=== PATIENT | female | born 1955 | race Caucasian/White ===

== ENCOUNTER 2016-07-18 00:41 | Emergency (ER) | payer MEDICAID ==
[2016-07-18 01:26] VITALS: BP 129/87
--- NOTE | 2016-07-18 01:35 | EDM.PDOC ---
[id number] CYST REMOVAL ON BACK, BLEEDING WITH PAIN Time Seen by Provider: 07/18/16 01:00 Source: Reports: Patient History Limitations: Reports: No limitations - History of Present Illness INITIAL COMMENTS - FREE TEXT/NARRATIVE: reports cyst removed by surgeon in [place] today. Tonight dressing fell off and bleeding from incision. Mild discomfort, has not taken any medication for pain Severity: mild - Related Data Allergies Allergy/AdvReac Type Severity Reaction Status Date / Time No Known Allergies Allergy Verified 07/18/16 00:58 Home Meds: Ambulatory Orders Medication Instructions Recorded Confirmed Albuterol Sulfate [Proair Hfa] 2 puff INH ASDIRECTED PRN 12/23/15 12/27/15 Aspirin/Calcium Carbonate/Mag 650 mg PO DAILY 12/23/15 07/18/16 [Aspirin Buffered 325 mg Tab] Multivit-Min/Iron Fum/Folic AC 1 tab PO DAILY 12/23/15 07/18/16 [Bfxby-Btrhvpr-Xxipfcgj Tablet] Vortioxetine Hydrobromide 20 mg PO DAILY 07/18/16 07/18/16 [Brintellix] atorvaSTATin [Lipitor] 40 mg PO BEDTIME 07/18/16 07/18/16 atorvaSTATin [Lipitor] 40 mg PO DAILY 07/18/16 07/18/16 Past Medical History HEENT History: Reports: Other (see below) Other HEENT History: UPPER AND LOWER DENTURES Cardiovascular History: Reports: High cholesterol, Other (see below) Other Cardiovascular History: MITRAL VALVE DISEASE Respiratory History: Reports: COPD Gastrointestinal History: Reports: Hemorrhoids, Other (see below) Other Gastrointestinal History: rectal bleed noted Genitourinary History: Reports: None EVENT SALES REPRESENTATIVE History: Reports: None, Musculoskeletal History: Reports: Gout Neurological History: Reports: CVA, TIA Psychiatric History: Reports: Anxiety, Depression Endocrine/Metabolic History: Reports: Diabetes, type II, Obesity/BMI 30+ Hematologic History: Reports: None Immunologic History: Reports: None Oncologic (Cancer) History: Reports: None Dermatologic History: Reports: Other (see below) Other Dermatologic History: cyst removal on back - Infectious Disease History Infectious Disease History: Reports: Chicken pox, Measles, Shingles - Past Surgical History HEENT Surgical History: Reports: Oral surgery Cardiovascular Surgical History: Reports: Other (see below) Other Cardiovascular Surgeries/Procedures: angiogram GI Surgical History: Reports: None, Colonoscopy, Other (see below) Other GI Surgeries/Procedures: Removal of lrge polyp. Female Surgical History: Reports: None Musculoskeletal Surgical History: Reports: Carpal tunnel, Other (see below) Other Musculoskeletal Surgeries/Procedures:: BILAT CARPAL TUNNEL RELEASE Social & Family History - Family History Family Medical History: Noncontributory HEENT: Reports: Other (see below) Other HEENT Family History: son is deaf Cardiac: Reports: None Respiratory: Reports: PE GI: Reports: None : Reports: Renal disease/insufficiency OBGYN: Reports: None Musculoskeletal: Reports: Arthritis Neurological: Reports: Parkinson's Psychiatric: Reports: Bipolar Endocrine/Metabolic: Reports: None Hematologic: Reports: None Immunologic: Reports: None Dermatologic: Reports: None Oncologic: Reports: Breast, Other (see below) Other Oncologic Family History: liver - Tobacco Use Smoking Status *Q: Current Every Day Smoker Years of Tobacco use: 25 Packs/Tins Daily: 1 - Caffeine Use Caffeine Use: Reports: None - Recreational Drug Use Recreational Drug Use: No - Living Situation & Occupation Occupation: employed ED ROS GENERAL - Review of Systems Review Of Systems: See Below Constitutional: Reports: no symptoms Respiratory: Reports: No Symptoms Cardiovascular: Reports: No symptoms GI/Abdominal: Reports: No symptoms Musculoskeletal: Reports: no symptoms Skin: Reports: wound (surgical incision bleeding uanble to reach area to view or replace dressing) Neurological: Reports: No Symptoms ED EXAM, SKIN/RASH Exam: See Below Exam Limited By: No limitations General Appearance: alert, anxious, mild distress, obese Eye Exam: bilateral eye: EOMI Throat/Mouth: Normal inspection Head: atraumatic Respiratory/Chest: no respiratory distress Cardiovascular: normal peripheral pulses Back Exam: other (surgical incision to skin consistent with history of cyst removal.) Extremities: normal inspection Neurological: alert, oriented, normal cognition Skin: Warm, Normal color, Wound/incision Location, Skin: back (4cm horizontal surgical wound bra line, sutures intact. scant bleeding at wound, no swelling, no redness. bleeding controlled with mild pressure. ) Associated features: tenderness, weeping (small amount bright blood. ). No: warmth, swelling, inflammation Course - Vital Signs Last Recorded V/S: Last Vital Signs Temp 96.8 F 07/18/16 00:45 Pulse 81 07/18/16 00:45 Resp 15 07/18/16 01:25 BP 129/87 07/18/16 01:25 Pulse Ox 96 07/18/16 01:25 Departure - Departure Time of Disposition: 01:30 Disposition: Home, Self-Care 01 Condition: good Clinical Impression: Post-op bleeding Qualifiers: Surgical complication system/body Area: skin Procedure type: dermatologic Qualified Code(s): L76.21 - Postprocedural hemorrhage of skin and subcutaneous tissue following a dermatologic procedure Instructions: How to Change Your Dressing, [id number] Forms: ED Department Discharge Additional Instructions: dressing change in 24 hours monitor for any redness or pus type drainage. If noted, follow up with surgeon Sutures out by surgeon as directed in 10 days tylenol or ibuprofen for discomfort
== END 2016-07-18 01:44 | disposition home or self-care (01) ==
LOC: DL.ED 00:41
DX: L76.21 Postprocedural hemorrhage of skin and subcutaneous tissue following a dermatologic procedure (principal); E78.00 Pure hypercholesterolemia, unspecified; J44.9 Chronic obstructive pulmonary disease, unspecified; M10.9 Gout, unspecified; Z86.73 Personal history of transient ischemic attack (TIA), and cerebral infarction without residual deficits; F41.9 Anxiety disorder, unspecified; F32.9 Major depressive disorder, single episode, unspecified; E11.9 Type 2 diabetes mellitus without complications; E66.9 Obesity, unspecified; F17.210 Nicotine dependence, cigarettes, uncomplicated; Z98.890 Other specified postprocedural states
CPT/HCPCS: 99282

== ENCOUNTER 2016-08-23 06:25 | Day surgery (SDC) | payer MEDICAID ==
[2016-08-23 08:18] VITALS: BP 133/63
--- NOTE | 2016-08-23 08:58 | OR ---
DATE: 08/23/2016 PROCEDURE: Flexible sigmoidoscopy, NBI, and cold snare polypectomy. INSTRUMENT USED: CF-H180AL Olympus video colonoscope. PREMEDICATIONS: None. INDICATION: The patient with previous rectal sessile polyp excision. Followup sigmoidoscopic examination is done for detection of any residual polyp and removal, endoscopic hemostasis therapy if needed. DESCRIPTION OF PROCEDURE: Initial rectal exam was unremarkable. Rigid anoscopy showed small internal hemorrhoids without bleeding from them. The colonoscope was passed with ease up to distal sigmoid area. No bleeding was noted from any of the visualized areas at the commencement of the examination. No stricture. No vascular ectasia. No large isolated ulcerations seen. No evidence of diffuse inflammatory bowel disease in the form of friability, contact bleeding, or ulcerations. In the rectum, a small 5 mm sized residual polyp tissue was noted, NBI views were obtained, photographs were taken, cold snare polypectomy was done, the tissue was retrieved and sent for histopathology. No bleeding was noted from any of the visualized areas at the completion of examination. IMPRESSION: Rectal polyp. The patient tolerated the procedure well. [facility] /[id number]
--- NOTE | 2016-08-23 10:39 | LETTER ---
08/23/2016 Hira He MD [facility] [address] [place] [id number] RE: NELY GILES : [address] He: Ms. Nely Giles had flexible sigmoidoscopic examination done this morning and she tolerated the procedure well. I herewith send a copy of the endoscopy note and photographs for your review. Thank you. Sincerely, [facility] /[id number]
== END 2016-08-23 08:25 | disposition home or self-care (01) ==
LOC: DL.SDS 06:25
PROVIDERS: ATTEND Internal Medicine Gastroenterology
DX: K63.5 Polyp of colon (principal); K64.8 Other hemorrhoids; E11.9 Type 2 diabetes mellitus without complications; E66.9 Obesity, unspecified; Z86.010 Personal history of colon polyps

== ENCOUNTER → 2019-03-20 | Day surgery (SDC) | payer SELFPAY ==
[~2019-03-20] MED LIST: Dextrose 5%-0.45% NaCl 1,000 ML IV SCH; Midazolam 1 MG/ML 2 ML SDV IV ONE; Midazolam 1 MG/ML 2 ML SDV ONE; Sodium Chloride 0.9% 10 ML Syringe FLUSH PRN; fentaNYL 100 MCG/2 ML SDV IV ONE; fentaNYL 100 MCG/2 ML SDV ONE
--- NOTE | 2019-03-20 08:04 | OR ---
DATE: 03/20/2019 PROCEDURES: Total colonoscopy, NBI, and multiple snare polypectomies. INSTRUMENT USED: CF-VG471W Olympus video colonoscope. PREMEDICATIONS: Fentanyl 150 mcg intravenous, Versed 4 mg intravenous, nasal O2 cannula. The procedure was done under pulse oximetry, BP recording, and bus monitor. INDICATION: The patient with previous villotubular adenoma and recent rectal bleeding. Colonoscopic examination is done for detection of any polypoid lesions and removal, endoscopic hemostasis therapy if needed. DESCRIPTION OF PROCEDURE: Initial rectal exam was unremarkable. Rigid anoscopy showed 1 cm sized partially sessile polyp. Snare polypectomy was done. The tissue was retrieved and sent for histopathology. The colonoscope was passed with ease. Visualization of the distal rectal area by retroflexion showed no bleeding areas, photographs were taken. Scattered diverticula were noted in the distal left colon along with deformity. The scope was passed with ease up to the ileocecal area. Photographs were taken of the normal-appearing cecum, identified by landmarks of appendiceal orifice and double-bulged ileocecal folds. No bleeding was noted from any of the visualized areas at the commencement of the examination. The bowel preparation was found to be adequate, Kake scale 2 in all the regions. No stricture. No vascular ectasia. No large isolated ulcerations seen. No evidence of diffuse inflammatory bowel disease in the form of friability, contact bleeding, or ulcerations. Numerous scattered diminutive polyps were noted. Cold snare polypectomies were done of the diminutive polyps in the distal and proximal descending colon. In the distal transverse colon, more than 1 cm sized sessile polyp was noted, NBI views were taken. Photographs were obtained. Probing the proximal sides of folds and flexures using adequate distention and clearing up the stool material, withdrawal of the scope was made. Cecum to rectum time over 6 minutes. No bleeding was noted from any of the visualized areas at the completion of examination. IMPRESSION: 1. Rectal and multiple colonic polyps. 2. Diverticulosis. The patient tolerated the procedure well. [facility] /[id number]
[2019-03-20 11:17] VITALS: BP 117/66; PULSE 57
== END ==
LOC: DL.ENDO 05:24
PROVIDERS: ATTEND Internal Medicine Gastroenterology
DX: D12.4 Benign neoplasm of descending colon (principal); D12.8 Benign neoplasm of rectum; K63.5 Polyp of colon; K57.31 Diverticulosis of large intestine without perforation or abscess with bleeding; E78.5 Hyperlipidemia, unspecified; E11.9 Type 2 diabetes mellitus without complications; F32.9 Major depressive disorder, single episode, unspecified; E66.09 Other obesity due to excess calories; Z86.010 Personal history of colon polyps
CPT/HCPCS: 45385; J2250; J3010; J7042

== ENCOUNTER 2019-10-10 17:38 | Emergency (ER) | payer MEDICAID ==
[2019-10-10 17:50] VITALS: BP 159/81; PULSE 63
--- NOTE | 2019-10-10 17:50 | CT ---
PROCEDURE INFORMATION: Exam: CT Head Without Contrast Exam date and time: 10/10/2019 5:42 PM Age: 63 years old Clinical indication: Other: Stroke protocol; Additional info: CVA TECHNIQUE: Imaging protocol: Computed tomography of the head without contrast. Radiation optimization: All CT scans at this facility use at least one of these dose optimization techniques: automated exposure control; mA and/or kV adjustment per patient size (includes targeted exams where dose is matched to clinical indication); or iterative reconstruction. Other technique: STROKE PROTOCOL was implemented. COMPARISON: No relevant prior studies available. FINDINGS: Brain: Subacute ischemic infarct involving the left basal ganglia and periventricular white matter without hemorrhage. Ventricles: Normal. No ventriculomegaly. Bones/joints: Unremarkable. No acute fracture. Sinuses: Visualized sinuses are unremarkable. No fluid levels. Mastoid air cells: Visualized mastoid air cells are well aerated. Soft tissues: Unremarkable. IMPRESSION: 1. Subacute evolving ischemic infarct involving the left lenticular nucleus as well as periventricular white matter on the left. This most likely is hypertensive in etiology. 2. No evidence for hemorrhage. ASSESSMENT: ASPECTS ([place] Stroke Program Early CT Score) is 9
--- NOTE | 2019-10-10 18:23 | EDM.PDOC ---
ED HPI GENERAL MEDICAL PROBLEM - General Chief Complaint: Neuro Symptoms/Deficits Time Seen by Provider: 10/10/19 18:05 Source of Information: Reports: Patient History Limitations: Reports: No Limitations - History of Present Illness INITIAL COMMENTS - FREE TEXT/NARRATIVE: The patient presents today for suspected stroke. She reports a history of DM and Afib. Last known well was 2 days ago. At that time, she felt that she felt confused and that she had issues moving her right leg as if it were much weaker. Earlier today, her son who is deaf noticed that she was not using sign language properly. She spoke to her brother who insisted she be seen in the ER. Police were called who brought her in. She was evaluated at [place] in May 2019 for Afib. She was placed on Diltiazem for 14 days but stopped after. She is unsure of her last A1c. Treatments AGRICULTURAL LENDER: Reports: Other (see below) Other Treatments AGRICULTURAL LENDER: blood sugar check 156 - Related Data Allergies Allergy/AdvReac Type Severity Reaction Status Date / Time No Known Allergies Allergy Verified 10/10/19 17:56 Home Meds: Home Meds Aspirin/Calcium Carbonate/Mag [Aspirin Buffered 325 mg Tab] 325 mg PO DAILY 12/23/15 [History] Naproxen Sodium [Aleve] 440 mg PO DAILY 03/19/19 [History] Past Medical History HEENT History: Reports: Other (See Below) Other HEENT History: UPPER AND LOWER DENTURES Cardiovascular History: Reports: Heart Murmur, High Cholesterol, Hypertension, Other (See Below) Other Cardiovascular History: MITRAL VALVE DISEASE. HX OF HEART MURMUR Respiratory History: Reports: COPD Gastrointestinal History: Reports: Colon Polyp, Hemorrhoids, Other (See Below) Other Gastrointestinal History: rectal bleed noted. HX OF MULTIPLE COLONIC POLYPS Genitourinary History: Reports: None PHYSICAL THERAPY AID History: Reports: Musculoskeletal History: Reports: Gout Neurological History: Reports: CVA, TIA Psychiatric History: Reports: Anxiety, Depression Endocrine/Metabolic History: Reports: Diabetes, Type II, Obesity/BMI 30+ Hematologic History: Reports: B12 Deficiency Immunologic History: Reports: None Oncologic (Cancer) History: Reports: None Dermatologic History: Reports: Other (See Below) Other Dermatologic History: cyst removal on back - Infectious Disease History Infectious Disease History: Reports: Chicken Pox, Measles, Shingles - Past Surgical History Head Surgeries/Procedures: Reports: None HEENT Surgical History: Reports: Oral Surgery Cardiovascular Surgical History: Reports: Other (See Below) Other Cardiovascular Surgeries/Procedures: angiogram Respiratory Surgical History: Reports: None GI Surgical History: Reports: None, Colonoscopy, Polypectomy, Other (See Below) Other GI Surgeries/Procedures: Removal of lrge polyp. HX OF TRANSANAL RESECTIN OF A LARGE SESSILE RECTAL POLYP Female Surgical History: Reports: None Endocrine Surgical History: Reports: None Neurological Surgical History: Reports: None Musculoskeletal Surgical History: Reports: Carpal Tunnel, Other (See Below) Other Musculoskeletal Surgeries/Procedures:: BILAT CARPAL TUNNEL RELEASE Oncologic Surgical History: Reports: None Dermatological Surgical History: Reports: None Social & Family History - Family History Family Medical History: Noncontributory HEENT: Reports: Other (See Below) Other HEENT Family History: son is deaf Cardiac: Reports: None Respiratory: Reports: PE GI: Reports: None : Reports: Renal Disease/Insufficiency OBGYN: Reports: None Musculoskeletal: Reports: Arthritis Neurological: Reports: Parkinson's Psychiatric: Reports: Bipolar Endocrine/Metabolic: Reports: None Hematologic: Reports: None Immunologic: Reports: None Dermatologic: Reports: None Oncologic: Reports: Breast, Other (See Below) Other Oncologic Family History: liver - Caffeine Use Caffeine Use: Reports: None - Living Situation & Occupation Occupation: Employed ED ROS GENERAL - Review of Systems Review Of Systems: Comprehensive ROS is negative, except as noted in HPI. ED EXAM, NEURO - Physical Exam Exam: See Below Exam Limited By: No Limitations General Appearance: Alert, WD/WN, No Apparent Distress Eye Exam: Bilateral Eye: EOMI, PERRL Ears: Normal External Exam, Hearing Grossly Normal Nose: Normal Inspection, Normal Mucosa, No Blood Throat/Mouth: Normal Inspection, Normal Lips Head Exam: Atraumatic Neck: Normal Inspection Respiratory/Chest: No Respiratory Distress, Lungs Clear, Normal Breath Sounds, No Accessory Muscle Use Cardiovascular: Normal Peripheral Pulses, Regular Rate, Rhythm GI/Abdominal: Normal Bowel Sounds, Soft, Non-Tender (Female) Exam: Deferred Neurological: Alert, Normal Mood/Affect, Normal Dorsiflexion, CN II-XII Intact, Normal Plantar Flexion, Normal Gait, Normal Reflexes, No Motor/Sensory Deficits, Oriented x 3 DTR: 2+: Bicep (R), Bicep (L), Patella (R), Patella (L) Extremities: Normal Inspection, Normal Range of Motion Psychiatric: Normal Affect, Normal Mood Skin Exam: Warm, Dry Course - Vital Signs Last Recorded V/S: Last Vital Signs Temp 96.1 F L 10/10/19 17:49 Pulse 63 10/10/19 17:49 Resp 18 10/10/19 17:49 BP 159/81 H 10/10/19 17:49 Pulse Ox 96 10/10/19 17:49 - Orders/Labs/Meds Orders: Active Orders 24 hr Category Date Time Status EKG Documentation Completion [RC] STAT Care 10/10/19 17:39 Active DRUG SCREEN URINE BIORAD [URCHEM] Stat Lab 10/10/19 17:39 Ordered INR,PT,PROTHROMBIN TIME [COAG] Stat Lab 10/10/19 17:39 Ordered UA RFX EDMUNDO AND CULT IF INDIC [URIN] Urgent Lab 10/10/19 17:39 Ordered Labs: Laboratory Tests 10/10/19 10/10/19 Range/Units 17:48 17:48 WBC 8.6 (5.0-10.0) 10^3/uL RBC 5.69 H (4.2-5.4) 10^6/uL Hgb 16.4 H (12.0-16.0) g/dL Hct 48.5 H (37.0-47.0) % MCV 85.2 (80-100) fL MCH 28.8 (27.0-34.0) pg MCHC 33.8 (33.0-35.0) g/dL Plt Count 312 (150-450) 10^3/uL Neut % (Auto) 59.1 (42.2-75.2) % Lymph % (Auto) 30.5 (20.5-50.1) % Davison % (Auto) 9.5 H (2-8) % Eos % (Auto) 0.7 L (1.0-3.0) % Baso % (Auto) 0.2 (0.0-1.0) % Sodium 142 (136-145) mmol/L Potassium 3.7 (3.5-5.1) mmol/L Chloride 102 (98-107) mmol/L Carbon Dioxide 24 (21-32) mmol/L Anion Gap 19.7 H (7-13) mEq/L BUN 15 (7-18) mg/dL Creatinine 0.83 (0.55-1.02) mg/dL Est Cr Clr Drug Dosing TNP Estimated GFR (MDRD) > 60 BUN/Creatinine Ratio 18.1 (No establ ref range) Glucose 200 H (74-99) mg/dL Calcium 9.4 (8.5-10.1) mg/dL Total Bilirubin 0.8 (0.2-1.0) mg/dL AST 15 (15-37) U/L ALT 25 (14-59) U/L Alkaline Phosphatase 120 H (46-116) U/L Troponin I < 0.017 (0.000-0.056) ng/mL Total Protein 7.3 (6.4-8.2) g/dL Albumin 4.0 (3.4-5.0) g/dL Globulin 3.3 Albumin/Globulin Ratio 1.2 Departure - Departure Time of Disposition: 18:51 Disposition: DC/Tfer to Acute Hospital 02 Condition: Fair Clinical Impression: Stroke - Discharge Information *PRESCRIPTION DRUG MONITORING PROGRAM REVIEWED*: No *COPY OF PRESCRIPTION DRUG MONITORING REPORT IN PATIENT ARABELLA: No Forms: Interfacility Transfer EMTALA Care Plan Goals: Spoke with Dr. Mcguire from Neurology and Dr. Puente, hospitalist, who have accepted patient for transfer and admission due to necessity of higher level of care and further evaluation. She will transported by [facility]. Sepsis Event Note (ED) - Evaluation Sepsis Screening Result: No Definite Risk - Focused Exam Vital Signs: Vital Signs Temp Pulse Resp BP Pulse Ox 10/10/19 17:49 96.1 F L 63 18 159/81 H 96
[2019-10-10 18:30] LABS: ANION GAP 19.7 mEq/L (7-13); CHLORIDE,CL 102 mmol/L (98-107); SODIUM,NA 142 mmol/L (136-145)
== END 2019-10-10 19:44 ==
LOC: DL.ED 17:38
DX: I63.9 Cerebral infarction, unspecified (principal); I10 Essential (primary) hypertension; J44.9 Chronic obstructive pulmonary disease, unspecified; M10.9 Gout, unspecified; E11.9 Type 2 diabetes mellitus without complications; E66.9 Obesity, unspecified; Z68.36 Body mass index [BMI] 36.0-36.9, adult; Z79.82 Long term (current) use of aspirin
CPT/HCPCS: 36415; 70450; 80053; 82962; 84484; 85025; 85610; 93005; 99285

== ENCOUNTER 2020-11-07 14:27 | Emergency (ER) | payer MEDICARE, MEDICAID | END 2020-11-07 16:07 | disposition left against medical advice (07) | LOC: DL.ED 14:27 | DX: Z53.21 Procedure and treatment not carried out due to patient leaving prior to being seen by health care provider (principal) ==